=== PATIENT | male | born 1945 | race Two or more races ===

== ENCOUNTER → 2019-05-26 | Outpatient (CLI) | payer OTHER, BC ==
[~2019-05-26] MED LIST: CLOBET30L TOP; HYDR1TAB94 PO; KETO10 PO; LANS30EC PO; LOSARTAN-HCTZ1 EAC1 PO; META800 PO; METO50ER PO; Prilosec Otc20 MG PO
== END | disposition home or self-care (01) ==
LOC: LAB SHORT 15:24 → LAB EV 15:24
DX: N39.0 Urinary tract infection, site not specified (principal)
CPT/HCPCS: 87077; 87086; 87186

== ENCOUNTER 2022-04-16 07:50 | Day surgery (SDC) | payer OTHER ==
[~2022-04-16] VITALS: Ht 190.5 cm; Wt 96.5 kg
[~2022-04-16 07:50] MED LIST changes: +Acetaminophen650 M1 PO; +DOXEPIN HCL3 MG PO; +GABAPENTIN600 MG PO; +Ibuprofen Ib100 MG PO; +LYRICA100 M2 PO; +Prevacid Soluta30 MG PO; +ZYRTEC10 M2 PO
[2022-04-16] MEDS ORDERED: PREG25 (08:06)
== END 2022-04-16 10:25 | disposition home or self-care (01) ==
LOC: ORSCSDS 07:50
PROVIDERS: Ophthalmology
PROC: 08RJ3JZ Replacement of Right Lens with Synthetic Substitute, Percutaneous Approach (ICD-10-PCS; principal; 2022-04-16 09:00)
DX: H25.11 Age-related nuclear cataract, right eye (principal); I10 Essential (primary) hypertension; K21.9 Gastro-esophageal reflux disease without esophagitis; Z79.899 Other long term (current) drug therapy
CPT/HCPCS: J2001; J2250; J3010; J3301; J7040; V2632

== ENCOUNTER 2022-04-23 11:19 | Day surgery (SDC) | payer OTHER ==
[~2022-04-23] VITALS: Ht 190.5 cm; Wt 96.4 kg
[~2022-04-23 11:19] MED LIST changes: +PREG25
--- NOTE | 2022-04-23 12:16 | NUR ---
04/23/22 1216 Mis Dejesus [address]
[2022-04-23] MEDS ORDERED: FAMO20 (12:19)
== END 2022-04-23 13:39 | disposition home or self-care (01) ==
LOC: ORSCSDS 11:19
PROVIDERS: Ophthalmology
PROC: 08RK3JZ Replacement of Left Lens with Synthetic Substitute, Percutaneous Approach (ICD-10-PCS; principal; 2022-04-23 12:30)
DX: H25.12 Age-related nuclear cataract, left eye (principal); H21.81 Floppy iris syndrome; I10 Essential (primary) hypertension; R73.09 Other abnormal glucose; K21.9 Gastro-esophageal reflux disease without esophagitis; E78.2 Mixed hyperlipidemia; Z79.899 Other long term (current) drug therapy
CPT/HCPCS: J2001; J2250; J3010; J3301; J7040; V2632

== ENCOUNTER 2023-11-06 03:21 | Emergency (ER) | payer OTHER ==
[~2023-11-06] VITALS: Ht 188 cm; Wt 97.5 kg
[~2023-11-06 03:21] MED LIST changes: +ACET325 PO; +ALPHA LIPOIC A600 M1; +FAMO20; +MELATONIN10 M6 PO; +NEURONTIN600 MG PO; +Saw Palmetto160 MG
[2023-11-06 03:39] VITALS: BP 138/92
[2023-11-06 04:35] LABS: Influenza A, PCR NEGATIVE (NEGATIVE); Influenza B, PCR NEGATIVE (NEGATIVE); Resp Syncytial Virus, PCR NEGATIVE (NEGATIVE)
[2023-11-06 04:37] LABS: SARS-Cov-2 (COVID-19) PCR, MMC POSITIVE (NEGATIVE)
[2023-11-06] MEDS ORDERED: ACET500 PO (04:53)
== END 2023-11-06 06:06 | disposition home or self-care (01) ==
LOC: ER 03:21
PROVIDERS: Emergency Medicine
DX: U07.1 COVID-19 (principal); I10 Essential (primary) hypertension; Z79.899 Other long term (current) drug therapy
CPT/HCPCS: 0241U; 71045; 87081; 87430; 94640; 94664; 99284-25; A9270

== ENCOUNTER 2023-11-12 18:50 | Emergency (ER) | payer OTHER ==
[~2023-11-12] VITALS: Ht 190.5 cm; Wt 98.0 kg
[~2023-11-12 18:50] MED LIST changes: +ACET500 PO
[2023-11-12] MEDS ORDERED: Clotrimazole-Be15 GM (19:21)
[2023-11-12] MEDS ORDERED: BENZ100A (19:21)
[2023-11-12] MEDS ORDERED: ONDANSETRON ODT 4 MG (19:21)
[2023-11-12 19:41] LABS: BASOPHILS ABSOLUTE AUTO 0.03 K/mm3 (0.00-0.23); BASOPHILS PERCENT AUTO 1 % (0-2); EOSINOPHILS ABSOLUTE AUTO 0.07 K/mm3 (0.00-0.68); EOSINOPHILS PERCENT AUTO 1 % (0-6); Hematocrit 35.8 % (37.0-53.0); Hemoglobin 12.3 g/dL (13.5-17.5); IMMATURE GRAN ABSOLUTE AUTO 0.28 K/mm3 (0.00-0.10); IMMATURE GRAN PERCENT AUTO 6 % (0-1); LYMPHOCYTES ABSOLUTE AUTO 0.21 K/mm3 (0.84-5.20); LYMPHOCYTES PERCENT AUTO 4 % (21-46); MONOCYTES ABSOLUTE AUTO 0.54 K/mm3 (0.16-1.47); MONOCYTES PERCENT AUTO 11 % (4-13); Mean Corpuscular HGB Conc 34.4 g/dL (31.5-36.5); Mean Corpuscular Volume 76 fL (80-100); Mean Platelet Volume 11.1 fL (9.1-12.4); NEUTROPHILS ABSOLUTE AUTO 3.85 K/mm3 (1.96-9.15); NEUTROPHILS PERCENT AUTO 77 % (41-73); Platelet Count 210 K/mm3 (150-400); RDW Coefficient Variation 14.6 % (11.7-14.2); RDW Standard Deviation 39.7 fL (35.1-46.3); Red Blood Cell Count 4.73 M/mm3 (4.30-5.90); White Blood Cell Count 4.98 K/mm3 (4.00-11.30)
[2023-11-12 20:02] LABS: Albumin, Blood 3.5 g/dL (3.4-5.0); Bilirubin, Total 0.6 mg/dL (0.1-1.0); Bun/Creatinine Ratio 12.9 (12.0-20.0); Calcium, Blood 8.9 mg/dL (8.5-10.1); Creatinine, Blood 0.78 mg/dL (0.60-1.20); Globulin, Blood 3.5 g/dL (2.2-4.0); Potassium, Blood 3.4 mmol/L (3.5-5.5)
[2023-11-12 20:45] VITALS: BP 132/92
== END 2023-11-12 20:46 | disposition home or self-care (01) ==
LOC: ER 18:50
PROVIDERS: Physician Assistant
DX: U07.1 COVID-19 (principal); R11.2 Nausea with vomiting, unspecified; I10 Essential (primary) hypertension; Z79.899 Other long term (current) drug therapy
CPT/HCPCS: 80053; 85025; 96361; 96374; 99284-25; A9270; J2405; J7030

== ENCOUNTER 2024-10-17 08:44 | Day surgery (SDC) | payer OTHER ==
[~2024-10-17] VITALS: Ht 188 cm; Wt 99.8 kg
[~2024-10-17 08:44] MED LIST changes: +BENZ100A; +Clotrimazole-Be15 GM; +ELIQUIS5 M2 PO; +ONDANSETRON ODT 4 MG
[2024-10-17 09:11] VITALS: BP 117/85
[2024-10-17 09:15] VITALS: BP 114/73
[2024-10-17] MEDS ORDERED: NS 250 ML IV ONE (10:08)
[2024-10-17] MEDS ORDERED: Heparin Sodium 1000 Units/ML 10ML MDV ONE (10:08)
[2024-10-17] MEDS ORDERED: FentaNYL Citrate 50 MCG/ML 2 ML Injection ONE (10:10)
[2024-10-17] MEDS ORDERED: NS 500 ML IV ONE (10:10)
[2024-10-17] MEDS ORDERED: Midazolam HCl 1MG / ML 2ML Vial ONE (10:10)
--- NOTE | 2024-10-17 11:15 | NUR ---
PATIENT ARRIVED BACK TO RECOVERY ROOM SITTING UPRIGHT IN BED. PATIENT CONVERSING APPROPRIATELY. PATIENT DENYING ANY PAIN. PATIENT AMBULATING AND VOIDING TO RESTROOMK WITHOUT DIFFICULTY. VSS ON RA
[2024-10-17 11:17] VITALS: BP 132/84
[2024-10-17 11:30] VITALS: BP 117/78
[2024-10-17 11:45] VITALS: BP 117/70
--- NOTE | 2024-10-17 11:49 | NUR ---
DISCHARGE INSTRUCTIONS REVIEWED WITH PATIENT. ALL QUESTIONS WERE ANSWERED
[2024-10-17 11:55] VITALS: BP 115/74
--- NOTE | 2024-10-17 12:07 | NUR ---
PATIENT GETTING DRESSED WITHOUT DIFFICULTY. R IJ SITE WITH DRESSING C/D/I SOFT/NONTENDER, NO EVIDENCE OF BLEEDING. VSS ON RA. PIV REMOVED WITHOUT DIFFICULTY, CATHETER INTACT. PATIENT BELONGINGS AND PAPERWORK LEFT WITH PATIENT. PATIENT WHEELED TO HOSPITAL ENTRANCE AND SPOUSE ABLE TO PROVIDE TRANSPORTATION HOME.
--- NOTE | 2024-10-17 12:46 | NUR ---
PT BACK TO RECOVERY ROOM. FAMILY AT BEDSIDE.
== END 2024-10-17 12:08 | disposition home or self-care (01) ==
LOC: MHTC 08:44
DX: Z45.89 Encounter for adjustment and management of other implanted devices (principal); C34.90 Malignant neoplasm of unspecified part of unspecified bronchus or lung; I70.0 Atherosclerosis of aorta; I48.91 Unspecified atrial fibrillation; I10 Essential (primary) hypertension; K21.9 Gastro-esophageal reflux disease without esophagitis; E78.2 Mixed hyperlipidemia; Z79.01 Long term (current) use of anticoagulants; Z79.899 Other long term (current) drug therapy; Z86.718 Personal history of other venous thrombosis and embolism; Z95.828 Presence of other vascular implants and grafts
CPT/HCPCS: 37193; 76937; 99152; 99153; C1769; C1773; C1894; J1644; J2250; J3010; J7040; J7050; Q9967

== ENCOUNTER 2025-03-01 08:47 | Day surgery (SDC) | payer OTHER ==
[2025-02-28 14:49] LABS: IMMATURE RETIC FRACTION 15.2 % (2.3-16.0); RETIC HGB EQUIVALENT 18.7 pg (28.20-36.60); RETICULOCYTE ABSOLUTE 0.041 M/mm3 (0.0200-0.1100); RETICULOCYTE COUNT PERCENT 1.21 % (0.50-2.50)
[2025-02-28 15:11] LABS: Percent Saturation 2.3 % (20.0-50.0)
[2025-02-28 15:40] LABS: Thyroid Stimulating Hormone 2.17 uIU/mL (0.360-4.800)
[2025-03-01] MEDS ORDERED: NS 250 ML IV SCH (10:05)
[2025-03-01 13:54] VITALS: BP 110/70
[2025-03-01 14:13] VITALS: BP 96/52
[2025-03-01 15:15] VITALS: BP 103/62
[2025-03-01 15:40] VITALS: BP 99/63
[2025-03-01 15:57] LABS: ERYTHROPOIETIN 139 mU/mL (4-27)
[2025-03-01 16:05] VITALS: BP 112/78
[2025-03-01 17:20] VITALS: BP 106/82
[2025-03-01 17:26] LABS: SOLUBLE TRANSFERRIN RECEPTOR 12.4 mg/L (2.2-5.0)
[2025-03-03 09:54] LABS: ALPHA 1 GLOBULIN 0.33 g/dL (0.19-0.46); ALPHA 2 GLOBULIN 0.62 g/dL (0.48-1.05); BETA GLOBULIN 0.74 g/dL (0.48-1.10); IMMUNOFIXATION REFLEX Not Done; TOTAL PROTEIN,SERUM 6.3 g/dL (6.3-8.2)
== END 2025-03-01 17:22 | disposition home or self-care (01) ==
LOC: ATC 08:47 → EDSTATUS 13:15 → ATC 17:22
PROVIDERS: Internal Medicine Hematology & Oncology
DX: C34.11 Malignant neoplasm of upper lobe, right bronchus or lung (principal); C77.1 Secondary and unspecified malignant neoplasm of intrathoracic lymph nodes; D51.1 Vitamin B12 deficiency anemia due to selective vitamin B12 malabsorption with proteinuria; I10 Essential (primary) hypertension; E55.9 Vitamin D deficiency, unspecified; E78.5 Hyperlipidemia, unspecified; K21.9 Gastro-esophageal reflux disease without esophagitis; J90 Pleural effusion, not elsewhere classified; J98.11 Atelectasis; Z79.899 Other long term (current) drug therapy
CPT/HCPCS: 36415; 36430; 71046; 80053; 82306; 82607; 82668; 82728; 82746; 82784; 83521; 83540; 83550; 83615; 84155; 84165; 84238; 84443; 85025; 85045; 86334; 86850; 86900; 86901; 86923; 88184; 88185; J7050; P9016